=== PATIENT | male | born 1950 | race Caucasian/White ===

== ENCOUNTER → 2017-01-25 | Outpatient (CLI) | payer BC, MEDICARE | LOC: RAD 14:05 | DX: I71.2 Thoracic aortic aneurysm, without rupture (principal); R91.1 Solitary pulmonary nodule | CPT/HCPCS: Q9967 ==

== ENCOUNTER 2017-07-15 06:18 | Emergency (ER) | payer BC ==
[~2017-07-15] VITALS: Ht 167.6 cm; Wt 72.7 kg
[2017-07-15] MEDS ORDERED: ASPIRIN 81M81 MG/TA2 PO (06:52)
[2017-07-15] MEDS ORDERED: TRIAMCINOLONE AC0.13 TP (06:53)
[2017-07-15] MEDS ORDERED: ZOCOR5 MG (06:53)
[2017-07-15] MEDS ORDERED: VASOTEC2.5 M1 (06:54)
[2017-07-15] MEDS ORDERED: TUDORZA PR400 MCG/Ac (06:54)
[2017-07-15] MEDS ORDERED: TOPROL XL 25MG25 MG (06:54)
[2017-07-15 08:25] VITALS: BP 118/75
== END 2017-07-15 08:25 | disposition home or self-care (01) ==
LOC: ED 06:18
DX: S20.212A Contusion of left front wall of thorax, initial encounter (principal); W19.XXXA Unspecified fall, initial encounter; Y92.009 Unspecified place in unspecified non-institutional (private) residence as the place of occurrence of the external cause; I10 Essential (primary) hypertension; J43.9 Emphysema, unspecified; Z87.891 Personal history of nicotine dependence
CPT/HCPCS: J1885

== ENCOUNTER → 2018-03-06 | Outpatient (CLI) | payer BC ==
[~2018-03-06] MED LIST: ASPIRIN 81M81 MG/TA2 PO; TOPROL XL 25MG25 MG; TRIAMCINOLONE AC0.13 TP; TUDORZA PR400 MCG/Ac; VASOTEC2.5 M1; ZOCOR5 MG
== END ==
LOC: RAD 08:45
DX: M19.012 Primary osteoarthritis, left shoulder (principal); M19.011 Primary osteoarthritis, right shoulder; Z98.890 Other specified postprocedural states

== ENCOUNTER 2018-09-11 09:00 | Outpatient (RCR) | payer MEDICARE, OTHER | END 2018-09-19 | disposition still patient (30) | LOC: PT | DX: Z47.1 Aftercare following joint replacement surgery (principal); Z96.612 Presence of left artificial shoulder joint ==

== ENCOUNTER → 2019-01-29 | Outpatient (CLI) | payer MEDICARE, OTHER | LOC: RAD 08:08 | DX: I77.810 Thoracic aortic ectasia (principal); R91.1 Solitary pulmonary nodule | CPT/HCPCS: Q9967 ==

== ENCOUNTER 2019-06-04 09:00 | Outpatient (RCR) | payer MEDICARE, OTHER | END 2019-06-08 | disposition still patient (30) | LOC: PT | DX: Z47.1 Aftercare following joint replacement surgery (principal); Z96.611 Presence of right artificial shoulder joint ==

== ENCOUNTER → 2020-06-03 | Day surgery (SDC) | payer MEDICARE, OTHER | END | disposition home or self-care (01) | LOC: MSO 07:23 | DX: Z12.11 Encounter for screening for malignant neoplasm of colon (principal); Z86.010 Personal history of colon polyps; K64.1 Second degree hemorrhoids; K57.90 Diverticulosis of intestine, part unspecified, without perforation or abscess without bleeding; I11.0 Hypertensive heart disease with heart failure; I50.22 Chronic systolic (congestive) heart failure; I71.2 Thoracic aortic aneurysm, without rupture; I42.8 Other cardiomyopathies; J44.9 Chronic obstructive pulmonary disease, unspecified; E78.5 Hyperlipidemia, unspecified; D53.9 Nutritional anemia, unspecified; E78.00 Pure hypercholesterolemia, unspecified; G89.29 Other chronic pain; M25.572 Pain in left ankle and joints of left foot; F17.220 Nicotine dependence, chewing tobacco, uncomplicated; Z79.899 Other long term (current) drug therapy; Z79.82 Long term (current) use of aspirin | CPT/HCPCS: 00812; J2704; J7120 ==

== ENCOUNTER 2020-06-08 08:00 | Outpatient (RCR) | payer MEDICARE, OTHER | END 2020-08-17 | disposition home or self-care (01) | LOC: PT | DX: M25.572 Pain in left ankle and joints of left foot (principal); G89.29 Other chronic pain ==

== ENCOUNTER → 2021-05-20 | Outpatient (CLI) | payer MEDICARE, OTHER ==
[2021-05-20 10:36] LABS: POTASSIUM 5.4 mmol/L (3.5-5.1)
[2021-05-20 10:37] LABS: CALCIUM 9.2 mg/dL (8.3-10.5)
== END ==
LOC: LAB 09:40
PROVIDERS: Internal Medicine Cardiovascular Disease
DX: Z79.899 Other long term (current) drug therapy (principal)

== ENCOUNTER → 2021-10-08 | Outpatient (CLI) | payer MEDICARE, OTHER | LOC: LAB 15:35 | DX: U07.1 COVID-19 (principal) ==

== ENCOUNTER 2021-10-18 18:33 | Emergency (ER) | payer MEDICARE, OTHER ==
[~2021-10-18] VITALS: Ht 162.6 cm; Wt 82.3 kg
[2021-10-18 19:25] LABS: ALBUMIN 3.6 g/dL (3.4-4.8); POTASSIUM 4.1 mmol/L (3.5-5.1); SODIUM 131 mmol/L (136-145)
[2021-10-18 19:26] LABS: CALCIUM 8.2 mg/dL (8.3-10.5); HEMATOCRIT 35.3 % (42.0-52.0); HEMOGLOBIN 11.9 g/dL (13.5-18.0); MEAN CELL VOLUME 97 fl (78-100); MEAN CORPUSCULAR HEMOGLOBIN 33 pg (27-31); MEAN CORPUSCULAR HGB CONC 34 g/dL (33-37); MEAN PLATELET VOLUME 9.8 fl (7.4-10.4); PLATELET COUNT 208 K/mm3 (130-400); RED BLOOD COUNT 3.64 M/mm3 (4.20-5.60); RED CELL DISTRIBUTION WIDTH 14.4 % (11.5-14.5); WHITE BLOOD COUNT 9.9 K/mm3 (4.8-10.8)
[2021-10-18 19:28] LABS: GLUCOSE 132 mg/dL (75-110); TOTAL PROTEIN 7.1 g/dL (6.2-8.1)
[2021-10-18 19:29] LABS: CARBON DIOXIDE 21 mmol/L (23-31)
[2021-10-18 19:30] LABS: TOTAL BILIRUBIN 1.2 mg/dL (0.2-1.2)
[2021-10-18 19:33] LABS: AST-SGOT 18 U/L (5-34)
[2021-10-18 19:34] LABS: ALT/SGPT 13 U/L (0-55)
[2021-10-18 19:42] LABS: TROPONIN-I < 0.030 ng/mL (<0.030)
[2021-10-18 19:51] LABS: D-DIMER 1.26 mg/L FEU (0.15-0.50)
[2021-10-18 20:28] LABS: LYMPHOCYTE 7 % (20-51); MONOCYTE 5 % (3-10); NEUTROPHILS 88 % (42-75)
[2021-10-18] MEDS ORDERED: LEVOFLOXACIN750 MG PO (21:34)
[2021-10-18 21:45] VITALS: BP 108/68
== END 2021-10-18 21:45 | disposition home or self-care (01) ==
LOC: ED 18:33
PROVIDERS: Nurse Practitioner
DX: U07.1 COVID-19 (principal); J12.82 Pneumonia due to coronavirus disease 2019; J44.0 Chronic obstructive pulmonary disease with (acute) lower respiratory infection; Z87.891 Personal history of nicotine dependence
CPT/HCPCS: J0696

== ENCOUNTER 2022-03-21 12:49 | Inpatient (IN) | payer MEDICARE, OTHER ==
[~2022-03-21] VITALS: Ht 162.6 cm; Wt 80.1 kg
[~2022-03-21 12:49] MED LIST changes: +LEVOFLOXACIN750 MG PO
[2022-03-21] MEDS ORDERED: IPRATROPIUM BROM3 M1 IH (14:56)
[2022-03-21] MEDS ORDERED: ELIQUIS5 MG PO (14:57)
[2022-03-21] MEDS ORDERED: AMIODARONE HCL400 MG PO (14:57)
[2022-03-21] MEDS ORDERED: PULMICORT0.5 MG/2 M IH (14:58)
[2022-03-21 15:00] VITALS: BP 135/78
[2022-03-21] MEDS ORDERED: LASIX40 M1 PO (15:00)
[2022-03-21] MEDS ORDERED: BENADRYL PO (15:00)
[2022-03-21] MEDS ORDERED: CORTIZONE-1028 GM TP (15:01)
[2022-03-21] MEDS ORDERED: K-TAB20 MEQ PO (15:03)
[2022-03-21] MEDS ORDERED: ZOCOR20 M1 PO (15:04)
[2022-03-21] MEDS ORDERED: TRELEGY ELLIPT1 EACH IH (15:07)
[2022-03-21 16:49] LABS: BASO # 0.02 K/mm3 (0.02-0.10); EOS # 0.03 K/mm3 (0.04-0.40); EOS % 0.3 % (0.0-4.0); HEMATOCRIT 24.2 % (42.0-52.0); HEMOGLOBIN 7.5 g/dL (13.5-18.0); LYMPH# 0.65 K/mm3 (1.50-4.00); MEAN CELL VOLUME 105 fl (78-100); MEAN CORPUSCULAR HEMOGLOBIN 33 pg (27-31); MEAN CORPUSCULAR HGB CONC 31 g/dL (33-37); MEAN PLATELET VOLUME 9.9 fl (7.4-10.4); MONO # 0.72 K/mm3 (0.20-0.80); NEU # 8.58 K/mm3 (1.40-6.50); PLATELET COUNT 394 K/mm3 (130-400); RED BLOOD COUNT 2.31 M/mm3 (4.20-5.60); RED CELL DISTRIBUTION WIDTH 15.7 % (11.5-14.5); WHITE BLOOD COUNT 10.1 K/mm3 (4.8-10.8)
[2022-03-21 16:59] LABS: ALBUMIN 3.1 g/dL (3.4-4.8); POTASSIUM 4.5 mmol/L (3.5-5.1)
[2022-03-21 17:00] LABS: CALCIUM 8.5 mg/dL (8.3-10.5)
[2022-03-21 17:02] LABS: TOTAL PROTEIN 6.4 g/dL (6.2-8.1)
[2022-03-21 17:03] LABS: TOTAL BILIRUBIN 0.9 mg/dL (0.2-1.2)
[2022-03-21 18:00] VITALS: BP 110/65
[2022-03-21 22:56] LABS: URINE APPEARANCE CLEAR; URINE BILIRUBIN NEGATIVE (NEGATIVE); URINE BLOOD NEGATIVE (NEGATIVE); URINE COLOR YELLOW; URINE GLUCOSE NEGATIVE (NEGATIVE); URINE KETONE NEGATIVE (NEGATIVE); URINE LEUKOCYTE ESTERASE NEGATIVE (NEGATIVE); URINE MUCUS PRESENT (NOT PRESENT); URINE NITRATE NEGATIVE (NEGATIVE); URINE PROTEIN(semi-quant) TRACE (NEGATIVE); URINE UROBILINOGEN NORMAL (NORMAL); URINE WBC 0-1 /hpf (0-3)
[2022-03-22 06:21] VITALS: BP 100/52
[2022-03-22 08:01] LABS: BASO # 0.02 K/mm3 (0.02-0.10); EOS # 0.04 K/mm3 (0.04-0.40); EOS % 0.4 % (0.0-4.0); HEMATOCRIT 25.5 % (42.0-52.0); HEMOGLOBIN 7.7 g/dL (13.5-18.0); LYMPH# 0.65 K/mm3 (1.50-4.00); MEAN CELL VOLUME 105 fl (78-100); MEAN CORPUSCULAR HEMOGLOBIN 32 pg (27-31); MEAN CORPUSCULAR HGB CONC 30 g/dL (33-37); MEAN PLATELET VOLUME 9.6 fl (7.4-10.4); MONO # 0.61 K/mm3 (0.20-0.80); NEU # 7.95 K/mm3 (1.40-6.50); PLATELET COUNT 396 K/mm3 (130-400); RED BLOOD COUNT 2.44 M/mm3 (4.20-5.60); RED CELL DISTRIBUTION WIDTH 15.6 % (11.5-14.5); WHITE BLOOD COUNT 9.4 K/mm3 (4.8-10.8)
[2022-03-22 08:04] LABS: ALBUMIN 3.2 g/dL (3.4-4.8)
[2022-03-22 08:05] LABS: POTASSIUM 4.2 mmol/L (3.5-5.1)
[2022-03-22 08:06] LABS: CALCIUM 8.8 mg/dL (8.3-10.5)
[2022-03-22 08:07] LABS: TOTAL PROTEIN 6.4 g/dL (6.2-8.1)
[2022-03-22 08:09] LABS: TOTAL BILIRUBIN 1.1 mg/dL (0.2-1.2)
[2022-03-22 17:04] VITALS: BP 113/68
[2022-03-23 06:16] VITALS: BP 122/73
[2022-03-23 08:09] LABS: HEMATOCRIT 23.5 % (42.0-52.0); HEMOGLOBIN 7.2 g/dL (13.5-18.0); MEAN CELL VOLUME 103 fl (78-100); MEAN CORPUSCULAR HEMOGLOBIN 31 pg (27-31); MEAN CORPUSCULAR HGB CONC 31 g/dL (33-37); MEAN PLATELET VOLUME 9.6 fl (7.4-10.4); PLATELET COUNT 393 K/mm3 (130-400); RED CELL DISTRIBUTION WIDTH 15.4 % (11.5-14.5); WHITE BLOOD COUNT 8.5 K/mm3 (4.8-10.8)
[2022-03-23 08:27] LABS: ALBUMIN 3.1 g/dL (3.4-4.8); POTASSIUM 4.1 mmol/L (3.5-5.1)
[2022-03-23 08:28] LABS: CALCIUM 8.5 mg/dL (8.3-10.5); RED BLOOD COUNT 2.29 M/mm3 (4.20-5.60)
[2022-03-23 08:29] LABS: TOTAL PROTEIN 6.3 g/dL (6.2-8.1)
[2022-03-23 08:31] LABS: TOTAL BILIRUBIN 0.8 mg/dL (0.2-1.2)
[2022-03-23 08:54] LABS: LYMPHOCYTE 6 % (20-51); MONOCYTE 5 % (3-10); NEUTROPHILS 87 % (42-75)
[2022-03-23 08:57] LABS: HYPOCHROMIA 1+; POLYCHROMASIA 1+
[2022-03-23 13:11] LABS: HEMATOCRIT 25.2 % (42.0-52.0); HEMOGLOBIN 7.6 g/dL (13.5-18.0)
[2022-03-23 18:01] VITALS: BP 126/65
[2022-03-24 05:40] VITALS: BP 95/57
[2022-03-24 17:10] VITALS: BP 110/73
[2022-03-25 05:59] VITALS: BP 108/61
[2022-03-25 14:51] VITALS: BP 107/60
[2022-03-26 06:15] VITALS: BP 118/75
[2022-03-26 17:16] VITALS: BP 115/69
[2022-03-27 06:17] VITALS: BP 102/63
[2022-03-27 17:04] VITALS: BP 102/59
[2022-03-28 05:58] VITALS: BP 113/66
[2022-03-28 17:13] VITALS: BP 112/66
[2022-03-29 06:06] VITALS: BP 121/73
[2022-03-29 08:04] LABS: BASO # 0.02 K/mm3 (0.02-0.10); EOS # 0.08 K/mm3 (0.04-0.40); EOS % 0.9 % (0.0-4.0); HEMATOCRIT 25.7 % (42.0-52.0); HEMOGLOBIN 7.9 g/dL (13.5-18.0); MEAN CELL VOLUME 99 fl (78-100); MEAN CORPUSCULAR HEMOGLOBIN 31 pg (27-31); MEAN CORPUSCULAR HGB CONC 31 g/dL (33-37); MEAN PLATELET VOLUME 9.9 fl (7.4-10.4); MONO # 0.42 K/mm3 (0.20-0.80); NEU # 7.52 K/mm3 (1.40-6.50); PLATELET COUNT 306 K/mm3 (130-400); RED BLOOD COUNT 2.59 M/mm3 (4.20-5.60); RED CELL DISTRIBUTION WIDTH 15.3 % (11.5-14.5); WHITE BLOOD COUNT 8.7 K/mm3 (4.8-10.8)
[2022-03-29 08:14] LABS: ALBUMIN 3.2 g/dL (3.4-4.8); POTASSIUM 4.5 mmol/L (3.5-5.1)
[2022-03-29 08:16] LABS: CALCIUM 8.7 mg/dL (8.3-10.5)
[2022-03-29 08:17] LABS: TOTAL PROTEIN 6.5 g/dL (6.2-8.1)
[2022-03-29 17:06] VITALS: BP 103/68
[2022-03-30 05:48] VITALS: BP 101/58
[2022-03-30 17:54] VITALS: BP 113/73
[2022-03-31 06:13] VITALS: BP 98/60
[2022-03-31 07:51] VITALS: BP 102/64
[2022-03-31 17:39] VITALS: BP 112/48
[2022-04-01 06:16] VITALS: BP 99/61
[2022-04-01 15:33] VITALS: BP 100/62
[2022-04-02 06:09] VITALS: BP 116/72
[2022-04-02 17:44] VITALS: BP 96/53
[2022-04-03 05:55] VITALS: BP 98/58
[2022-04-03 18:51] VITALS: BP 97/61
[2022-04-04 06:21] VITALS: BP 98/60
[2022-04-04] MEDS ORDERED: AMIODARONE200 MG PO (16:31)
[2022-04-04] MEDS ORDERED: ELIQUIS5 MG PO (16:31)
[2022-04-06] MEDS ORDERED: ALDACTONE25 M1 PO (13:09)
[2022-04-06] MEDS ORDERED: FOLIC ACID1 MG PO (13:10)
[2022-04-06] MEDS ORDERED: FERROUS SULFATE65 MG PO (13:16)
[2022-04-06] MEDS ORDERED: ATORVASTATIN CA10 MG PO (13:19)
[2022-04-06] MEDS ORDERED: TRELEGY ELLIPT1 EACH IH (13:22)
== END 2022-04-04 07:20 | disposition home or self-care (01) | DRG 948 ==
LOC: MED/SURG 12:49
PROVIDERS: Family Medicine; ADMIT Physician Assistant
DX: R53.81 Other malaise (principal); D62 Acute posthemorrhagic anemia; I71.40 Abdominal aortic aneurysm, without rupture, unspecified; I10 Essential (primary) hypertension; I48.91 Unspecified atrial fibrillation; R05.9 Cough, unspecified; L42 Pityriasis rosea; E78.5 Hyperlipidemia, unspecified; Z87.891 Personal history of nicotine dependence; Z95.828 Presence of other vascular implants and grafts
CPT/HCPCS: Q0177

== ENCOUNTER → 2022-04-18 | Outpatient (RCR) | payer MEDICARE, OTHER ==
[~2022-04-18] MED LIST changes: +ALDACTONE25 M1 PO; +AMIODARONE HCL400 MG PO; +AMIODARONE200 MG PO; +ATORVASTATIN CA10 MG PO; +BENADRYL PO; +CORTIZONE-1028 GM TP; +ELIQUIS5 MG PO; +FERROUS SULFATE65 MG PO; +FOLIC ACID1 MG PO; +IPRATROPIUM BROM3 M1 IH; +K-TAB20 MEQ PO; +LASIX40 M1 PO; +PULMICORT0.5 MG/2 M IH; +TRELEGY ELLIPT1 EACH IH; +ZOCOR20 M1 PO
== END ==
LOC: PT
DX: Z95.828 Presence of other vascular implants and grafts (principal); Z98.890 Other specified postprocedural states

== ENCOUNTER 2022-04-24 10:51 | Outpatient (RCR) | payer MEDICARE, OTHER | END 2022-05-19 | disposition home or self-care (01) | LOC: CARDREHAB | DX: Z48.812 Encounter for surgical aftercare following surgery on the circulatory system (principal); Z95.828 Presence of other vascular implants and grafts; Z98.890 Other specified postprocedural states ==

== ENCOUNTER → 2022-04-26 | Outpatient (CLI) | payer MEDICARE, OTHER | LOC: RAD 10:30 | DX: J90 Pleural effusion, not elsewhere classified (principal) ==

== ENCOUNTER → 2022-05-05 | Outpatient (CLI) | payer MEDICARE, OTHER | LOC: RAD 10:11 | DX: J90 Pleural effusion, not elsewhere classified (principal) ==

== ENCOUNTER → 2022-12-13 | Outpatient (CLI) | payer MEDICARE, OTHER | LOC: RAD 08:39 | DX: M51.36 Other intervertebral disc degeneration, lumbar region (principal); M47.816 Spondylosis without myelopathy or radiculopathy, lumbar region ==

== ENCOUNTER → 2023-03-13 | Outpatient (CLI) | payer MEDICARE, OTHER | LOC: RAD 10:30 | DX: J90 Pleural effusion, not elsewhere classified (principal) ==

== ENCOUNTER → 2023-05-15 | Outpatient (CLI) | payer MEDICARE, OTHER | LOC: RAD 13:41 | DX: R09.02 Hypoxemia (principal); R06.09 Other forms of dyspnea ==

== ENCOUNTER → 2024-06-02 | Outpatient (CLI) | payer MEDICARE, OTHER | LOC: RAD 10:59 | DX: Q25.46 Tortuous aortic arch (principal); J90 Pleural effusion, not elsewhere classified; I50.9 Heart failure, unspecified ==